=== PATIENT | female | born 1955 | race Two or more races ===

== ENCOUNTER 2019-07-15 05:53 | Day surgery (SDC) | payer OTHER ==
[~2019-07-15 05:53] MED LIST: AMBIEN CR12.5 MG PO; BAYER THERAPY325 MG PO; CARVEDILOL25 MG PO; CLONAZEPAM1 M1 PO; CYMBALTA60 MG PO; GABAPENTIN600 MG PO; PRILOSEC OTC20 MG PO; SEROQUEL50 MG PO; TRICOR145 MG PO; ZESTRIL40 M1 PO; ZOCOR40 MG PO
[2019-07-15] MEDS ORDERED: PERCOCET 5-3251 EACH PO (09:11)
== END 2019-07-15 13:30 | disposition home or self-care (01) ==
LOC: CIR.AMB 05:53
DX: R15.9 Full incontinence of feces (principal)
CPT/HCPCS: 64581; C1778

== ENCOUNTER 2019-07-29 06:10 | Day surgery (SDC) | payer OTHER ==
[~2019-07-29 06:10] MED LIST changes: +DICY20TA PO; +PERCOCET 5-3251 EACH PO; +[UNRECOGNIZED DRUG - OTHER] PO
== END 2019-07-29 09:50 | disposition home or self-care (01) ==
LOC: CIR.AMB 06:10
DX: R15.9 Full incontinence of feces (principal)
CPT/HCPCS: 64590; C1767